=== PATIENT | male | born 1965 | race Caucasian/White ===

== ENCOUNTER 2017-11-26 09:23 | Day surgery (SDC) | payer OTHER ==
[2017-11-26 10:10] VITALS: TEMP 98.2
[2017-11-26] MEDS ORDERED: Propofol 10 mg/ml Inj (20 ML) ONE (10:57)
--- NOTE | 2017-11-26 11:02 | CP.SDSHP ---
Same Day Surgery H & P - History Proposed Procedure: EGD Pre-Op Diagnosis: SEE NOTES - Previous Medical/Surgical History Pain: 4.Moderate Pain Previous Surgical History: SLEEP [employer]. - Allergies Allergies: Allergies No Known Allergies Allergy (Verified 11/26/17 09:59) - Current Medications Current Medications: N - Physical Exam General Appearance: N Vital Signs: Vital Signs 11/26/17 09:40 Temperature 98.2 F Pulse Rate 75 Respiratory 16 Rate Blood Pressure 111/72 O2 Sat by Pulse 97 Oximetry Neuro: WNL Heart: WNL Lungs: WNL GI: Other - {Optional Preform as Required} Breast: WNL Abdomen: Other Rectal: WNL Integument: WNL : WNL Ortho: WNL ENT: WNL - Impression Pt. Evaluated Today:Candidate for Anesthesia & Procedure: Yes - Date & Time Time: 11:02 Short Stay Discharge - Short Stay Discharge Admitting Diagnosis/Reason for Visit: FUNCTIONAL DYSPEPSIA Disposition: HOME/ ROUTINE
[2017-11-26] MEDS ORDERED: Pantoprazole 40 mg EC Tab PO ONE (11:03)
[2017-11-26] MEDS ORDERED: Belladonna-Phenobarbital PO ONE (11:15)
[2017-11-26 11:40] VITALS: O2SAT 98
[2017-11-26 12:51] VITALS: RESP 16
[2017-11-26 12:56] VITALS: BP 108/72; PULSE 61
== END 2017-11-26 12:19 | disposition home or self-care (01) ==
LOC: C.ENDO 09:23
PROVIDERS: ATTEND Specialist
DX: K30 Functional dyspepsia (principal); B96.81 Helicobacter pylori [H. pylori] as the cause of diseases classified elsewhere; K25.9 Gastric ulcer, unspecified as acute or chronic, without hemorrhage or perforation; K29.70 Gastritis, unspecified, without bleeding; K44.9 Diaphragmatic hernia without obstruction or gangrene; R10.84 Generalized abdominal pain
CPT/HCPCS: 43239; 88305; 88342; J2001; J2704

== ENCOUNTER 2017-12-10 07:23 | Day surgery (SDC) | payer OTHER ==
[2017-12-10 08:07] VITALS: BMI 39.5
--- NOTE | 2017-12-10 09:29 | CP.SDSHP ---
Same Day Surgery H & P - History Proposed Procedure: COLONSCOPY Pre-Op Diagnosis: SEE NOTES - Previous Medical/Surgical History Pulmonary: Other Misc: Other Pain: 0. No Pain - Allergies Allergies: Allergies No Known Allergies Allergy (Verified 11/26/17 09:59) - Physical Exam General Appearance: N Vital Signs: Vital Signs 12/10/17 08:07 Temperature 97.3 F L Pulse Rate 75 Respiratory 19 Rate Blood Pressure 117/82 O2 Sat by Pulse 100 Oximetry Mental Status: Alert & Oriented x3 Neuro: WNL Heart: WNL Lungs: Other GI: WNL - {Optional Preform as Required} Breast: WNL Abdomen: Other Rectal: WNL Integument: WNL : WNL Ortho: WNL ENT: WNL - Impression Pt. Evaluated Today:Candidate for Anesthesia & Procedure: Yes - Date & Time Time: 09:30 Short Stay Discharge - Short Stay Discharge Admitting Diagnosis/Reason for Visit: ENCOUNTER FOR SCREENING FOR MALIGNANT NEOPLASM OF Disposition: HOME/ ROUTINE
[2017-12-10] MEDS ORDERED: Propofol 10 mg/ml Inj (20 ML) ONE ×2 (09:32)
[2017-12-10] MEDS ORDERED: Belladonna-Phenobarbital PO ONE (10:10)
[2017-12-10 10:57] VITALS: TEMP 97.6
[2017-12-10 11:05] VITALS: O2SAT 97
[2017-12-10 11:15] VITALS: BP 110/70; PULSE 61; RESP 18
== END 2017-12-10 10:54 | disposition home or self-care (01) ==
LOC: C.ENDO 07:23
PROVIDERS: ATTEND Specialist
DX: Z12.11 Encounter for screening for malignant neoplasm of colon (principal); K58.9 Irritable bowel syndrome, unspecified; K64.8 Other hemorrhoids; K64.4 Residual hemorrhoidal skin tags
CPT/HCPCS: 45380; 88305; J2704